=== PATIENT | male | born 1960 | race Caucasian/White ===

== ENCOUNTER → 2020-09-29 07:40 | Outpatient (CLI) | payer OTHER, SELFPAY ==
--- NOTE | ~2020-09-29 | MR_ITS ---
EXAMINATION: MR shoulder RT wo con DATE: 09/29/2020 08:31 INDICATION: Right shoulder pain. Impingement syndrome. TECHNIQUE: Magnetic resonance imaging (MRI) of the right shoulder was performed without intravenous c ontrast. Sequences included axial PD-weighted FS FSE, coronal oblique PD-weighted FS FSE and T2-weigh merna FS FSE, and sagittal oblique T2-weighted FS FSE and T1-weighted FSE. COMPARISON: Right shoulder radiographs 09/26/2020 FINDINGS: Coracoacromial arch: The acromion undersurface is flat in morphology (type I). There is severe acromioclavicular joint ost eoarthritis. There is mild subacromial/subdeltoid bursitis. Rotator cuff: There is severe supraspinatus and infraspinatus tendinopathy. There is an articular sided partial-thi ckness tear of supraspinatus and infraspinatus tendons measuring 1.5 cm anterior to posterior by 4 mm proximal to distal by 1/5 tendon thickness. There is mild teres minor and subscapularis tendinopathy . There is no asymmetric fatty atrophy of the rotator cuff muscle bellies. Biceps tendon and glenoid labrum: Biceps tendon is in bicipital groove. Intra-articular biceps tendon is normal. There are tears of the glenoid labrum at 12:00 and 7:00. There is an 11 x 7 mm paralabral cyst at 6:00. Fluid: There is no glenohumeral joint effusion. Bones/cartilage: There is deep partial thickness cartilage loss of anteroinferior glenoid with subchondral cysts. Ther e is cartilage surface irregularity of humeral head. IMPRESSION: 1. Partial-thickness rotator cuff tear. 2. Moderate glenohumeral joint chondrosis. 3. Severe acromioclavicular joint osteoarthritis. 4. Mild subacromial/subdeltoid bursitis. Reviewed, dictated and finalized at location A. [employer]
== END ==
PROVIDERS: PCP Internal Medicine; Visit Provider Orthopaedic Surgery
DX: M75.41 Impingement syndrome of right shoulder (principal); M19.011 Primary osteoarthritis, right shoulder; M75.51 Bursitis of right shoulder
CPT/HCPCS: 73221

== ENCOUNTER → 2020-10-11 00:22 | Outpatient (CLI) | payer OTHER, SELFPAY ==
[2020-10-11 21:18] LABS: SARS-CoV-2 RNA PCR Negative
== END ==
PROVIDERS: PCP Internal Medicine; Visit Provider Orthopaedic Surgery
DX: Z01.812 Encounter for preprocedural laboratory examination (principal); Z20.822 Contact with and (suspected) exposure to COVID-19
CPT/HCPCS: C9803; U0003; U0005

== ENCOUNTER 2020-10-14 00:26 | Day surgery (SDC) | payer OTHER, SELFPAY ==
[2020-10-10 12:46] VITALS: BMI 25.7
[2020-10-14] VITALS (14 sets, daily range): BP systolic 113–133; BP diastolic 74–86; PULSE 57–80; RESP 8–20; TEMP 36.1–36.2; O2SAT 92–100
--- NOTE | 2020-10-14 07:11 | WPDHPUPDATE1 ---
History and Physical Update Update Date/Time: 10/14/20 07:11 History and Physical has been reviewed, including an updated exam of the patient. There are NO changes in the patient's condition. Risks, benefits, and alternatives have been discussed and questions answered. Patient agrees to proceed with procedure.
--- NOTE | 2020-10-14 07:59 | WPDANESEPPF ---
Anes - Initial Pre Proc Eval Procedure: Operation Date: 10/14/20 10:30 Proposed Procedures p Right Shoulder Arthroscopic Debridement With Subacromial Decompression, Mini Open Biceps Tenodesis - Mickey Padron MD Date/Time: 10/14/20 07:59 Surgeon: Mickey Padron MD Pre Op Diagnosis: Impingment Syndrome, Right Shoulder Patient Data Age: 60 Gender: M Height: 1.85 m Weight: 88.6 kg Allergies Allergy/AdvReac Type Severity Reaction Status Date / Time codeine AdvReac Unknown Nausea and Verified 10/10/20 12:41 Vomiting Home Medications Medication Instructions Recorded Confirmed Type pantoprazole 40 mg PO QAM 10/10/20 10/10/20 History Patient hx anesthesia problems: none Family hx anesthesia problems: none PMFSH Past Medical History Medical History (Updated 10/14/20 @ 08:00 by Bryan Frey DO) GERD (gastroesophageal reflux disease) History of renal stone History of skin cancer Impingement syndrome of right shoulder Surgical History Surgical History (Updated 10/14/20 @ 08:00 by Bryan Frey DO) History of appendectomy Family History Family History Other Diabetes mellitus Family history of malignant neoplasm Social History Social History Smoking status: Never smoker Second hand tobacco smoke exposure: No Alcohol intake: current Drinks per week: 3 Substance use: never Substance use type: does not use Living arrangements: with family Spiritual care concerns: No Anes - Eval Final PreProcedure Day of Procedure 10/14/20 07:59 Patient weight: overweight Heart: regular rate and rhythm Lungs: clear to auscultation and normal air movement Airway: Mallampati scale class II Neurological: alert and oriented Last oral intake: >/= 8 hours ASA classification: II Emergent: no Anesthetic plan: proceed Anesthesia type and monitoring: general ETT and standard monitoring Informed Consent: The patient's anesthetic plan and its attendant risks and benefits were discussed with the patient/family/POA. Questions were solicited and answers provided to the satisfaction of the patient/family/POA.
--- NOTE | 2020-10-14 08:00 | WPDANESPNB ---
Anes - Peripheral Nerve Block Date/Time: 10/14/20 08:00 I have discussed with the patient/family/POA the placement of a peripheral nerve block for post-operative pain management, including associated risks, benefits, complications, and side effects. Alternative methods of post-operative analgesia were detailed. Questions were solicited and answers provided to the satisfaction of the patient/family/POA. Time-Out: A pre-procedural Time-Out was completed immediately before starting the procedure and confirmed: Patient Identification, Site, Procedure, Patient Position and the Availability of Requisite Equipment. Clinical Indications: Acute post-operative pain management requested by the operative surgeon. Nerve Block Insertion Note Anes-nerve block: interscalene right Patient position: supine Skin prep: chlorhexidine Needle: 22 gauge, stimulating, insulated echogenic needle. Needle length: 50 mm Technique: ultrasound Injectate: bupivacaine 0.5% with epi 5 mcg/ml (30cc- no epi) Observations: tolerated well Complications: none Procedure start time:: 1002 Procedure end time:: 1005
[2020-10-14] MEDS: ACETAMINOPHEN 500 MG TABLET 1000 MG PO (09:10)
[2020-10-14] MEDS: LACTATED RINGERS 1,000 ML 30 ML IV CONT ×2 (09:10→13:34)
[2020-10-14] MEDS: KETOROLAC 15 MG/ML VIAL (*BKC) IV PUSH (09:11)
--- NOTE | 2020-10-14 10:35 | SUR.PREOP ---
1035 - dr. pacheco aware of pt's small opened area noted to rt chest. pt attempted to cut hair with scissors at home
[2020-10-14] MEDS: ceFAZolin 2 GM/D5W 50 ML 2 GM/50 ML BAG IVPB (10:42)
[2020-10-14] MEDS: fentaNYL CITRATE INJ (*CRX) 100 MCG/2 ML VIAL 25 MCG IV PUSH ×4 (13:59→14:12)
--- NOTE | 2020-10-14 14:10 | PM.PROC ---
Procedure Note - Detailed Date of procedure: 10/14/20 Pre-op diagnosis: Impingment Syndrome, Right Shoulder Post-op diagnosis: other (1.High grade partial rotator cuff tear 2. Impingment syndrome 3. Biceps tendonitis 4. Degerative arthritis) Procedure performed: 1. Arthroscopic rotator cuff repair. 2. Arthroscopic subacromial decompression. 3. Mini-open sub-pectoral biceps tenodesis. Anesthesia: GETA and regional Surgeon: Mickey Padron MD Special Procedures Technologist: Tiara Archibald PA-C Estimated blood loss (mL): 20 Complications: None Condition: stable Disposition: PACU Findings: Physician animal care assistant, Tiara Archibald PA-C, required for surgery; including patient positioning, draping, arthroscopic camera operation, maintaining instrument position, suture retrieval, wound closure, and dressing and sling placement. Operative detail: Preoperative antibiotics were given. An interscalene block was administered in the preoperative area. The patient was bought brought to the operating room. A general anesthetic was administered. The patient was carefully positioned in the beach chair position. The head and neck were carefully positioned. The non operative extremity was also carefully positioned. The shoulder was prepped and draped in the usual sterile fashion. Examination was performed. Standard posterior and anterior arthroscopic portals were established. Inflow achieved with the arthroscopic pump using saline and epinephrine. The glenohumeral joint was carefully inspected. No intraarticular treatment was required. Attention was turned to the subacromial space. A complete bursectomy was performed. The rotator cuff and footprint were lightly debrided. An acromioplasty was performed. The tear configuration was carefully assessed. At this point, a tunnel was created at the rotator cuff. The ArthroTunneler technique was utilized. Three sutures were passed through each tunnel. All sutures were then passed through the cuff tissue. The sutures were tied arthroscopically. An axillary incision was created at the pectoralis major insertion. The interval between the pectoralis and the short head of the biceps was dissected. The long head was identified. A retractor was placed at the pectoralis. The biceps was delivered into the wound. A Krackow stitch was placed using #2 Orthocord suture at the musculotendinous junction. The 7.5 mm acorn reamer was used to ream a unicortical hole just proximal to the pectoralis. Two 2.5 mm holes were placed one centimeter distal, in a triangular pattern. The Orthocord sutures were shuttled through the holes. The tendon was docked anatomically and tied on bone. The wound was irrigated and closed with 2-0 Vicryl suture and 3-0 Monocryl suture, followed by running 4-0 Monocryl, and Steri-Strips. The wounds were closed with 3-0 Monocryl subcuticular suture and steri strips. There were no complications. A sling was applied and the patient brought to the recovery room.
[2020-10-14] MEDS: HYDROmorphone HCL INJ (*CRX) 1 MG/ML SYR 0.5 MG IV PUSH ×6 (14:24→15:23)
--- NOTE | 2020-10-14 16:00 | SUR.PHASEII ---
1600- Dr. Campbell rounding on patient in outpatient recovery room and assessing right upper extremity with patient complaining of throbbing to right thumb s/p block and procedure.
[2020-10-14] MEDS: oxyCODONE HCL (*CRX) 5 MG TAB IR PO (17:28)
== END 2020-10-14 17:30 | disposition home or self-care (01) ==
PROVIDERS: PCP Internal Medicine; Visit Provider Orthopaedic Surgery
PROC: (CPT 29805; principal; 2020-10-14 10:30)
DX: M75.41 Impingement syndrome of right shoulder (principal); M75.111 Incomplete rotator cuff tear or rupture of right shoulder, not specified as traumatic; M75.21 Bicipital tendinitis, right shoulder; Z85.828 Personal history of other malignant neoplasm of skin; G89.18 Other acute postprocedural pain; M19.011 Primary osteoarthritis, right shoulder; K21.9 Gastro-esophageal reflux disease without esophagitis
CPT/HCPCS: 64415; 29826; 29827; 23430; A4565; A9270; C9803; J0330; J0690; J1100; J1170; J1885; J2250; J2405; J2704; J3010; J7120; U0003; U0005

== ENCOUNTER 2024-01-14 11:50 | Outpatient (CLI) | payer OTHER, SELFPAY | END 2024-01-14 11:51 | disposition home or self-care (01) | LOC: ANHIMG 11:52 | PROVIDERS: PCP Internal Medicine; Visit Provider Orthopaedic Surgery | DX: M25.561 Pain in right knee (principal); M25.562 Pain in left knee | CPT/HCPCS: 73564 ==